=== PATIENT | female | born 1955 | race Caucasian/White ===

== ENCOUNTER 2016-12-05 22:04 | Emergency (ER) | payer OTHER ==
[2016-12-05 22:46] LABS: Hematocrit 36.1 % (37.0-47.0); Hemoglobin 11.9 gm/dL (12.5-16.0); Mean Cell Volume 84.1 fl (78-100); Mean Corpuscular Hemoglobin 27.7 pg (27-31); Mean Platelet Volume 9.7 fl (6.0-9.5); Neutrophil # 6.4 K/mm3 (1.3-6.0); Platelet Count 207 K/mm3 (150-450); Red Blood Count 4.29 M/mm3 (4.2-5.4); Red Cell Distribution Width 14.4 % (11.5-14.0); White Blood Count 11.6 K/mm3 (4.0-10.5)
[2016-12-05 22:59] LABS: Prothrombin Time (Patient) 11.5 Seconds (9.4-11.4)
[2016-12-05 23:00] LABS: INR 1.11 INR (0.90-1.10); Partial Thrombolplastin Time 26.9 Seconds (24-32)
[2016-12-05 23:07] LABS: Albumin * 2.8 gm/dl (3.4-5.0); Anion Gap 16.6 mmol/L (6.8-13.8); BUN/Creatinine Ratio 22.4 (9.0-21.6); Bilirubin, Total 0.3 mg/dL (0.0-1.1); Ca. Corrected For Albumin 9.5 mg/dL (8.4-10.2); Calcium * 8.9 mg/dL (7.9-10.9); Carbon Dioxide 24.3 mmol/L (24-32.6); Potassium 4.9 mmol/L (3.4-4.6); Total Protein 7.6 gm/dL (6.2-8.2)
[2016-12-05 23:08] LABS: Troponin I 0.404 ng/ml (0.00-0.10)
--- OUTSIDE RECORDS SUMMARY | 2016-12-05 23:22 | XMS REPORT | Continuity of Care Document ---
:1955 Author Organization [facility] ([facility]) [place] [address] Phone [phone] Care Team Providers Name Role Phone Desmond Montalvo Primary Care Provider [phone] Source Comments This disclosure is being made pursuant to the Care Everywhere program, applicable federal and state laws, and may not contain all informaitonavailable regarding this patient.[facility] ([facility]) Active Allergies and Adverse Reactions Allergen Noted Date Severity Reactions Comments Aspirin Nausea & Vomiting Bee Stings 02/13/2009 Anaphylaxis Glimepiride Unknown Iodinated Contrast 04/01/2013 Urticaria (Hives) Media - Oral And Iv Dye Iodine Urticaria (Hives) Latex, Natural Rubber OTHER pt just stated that he gets rashes around latex; itching at contact site; contact precautions but IV latex OK Non-Med Metal Urticaria (Hives) bumps, rash appears on skin in area of contact with metal any metal,except stainless steel Penicillins Seizure Pentobarbital OTHER cardiac arrest and seizures Sulfa (Sulfonamide 05/06/2016 Unknown Antibiotics) Thiopental Sodium 11/04/2014 Unknown On assisted records Trees 02/13/2009 Respiratory Distress,Rhinorrhea Current Medications Prescription Sig. Disp. Refills Start Date End Date Status amLODIPine 10 mg Take 10 mg by mouth Active tablet daily. gabapentin 600 mg Take 1,200 mg by mouth Active tablet 3 times daily. meloxicam 7.5 mg Take 7.5 mg by mouth Active tablet daily. simvastatin 40 mg Take 40 mg by mouth Active tablet every evening. carvedilol 25 mg Take 50 mg by mouth 2 Active tablet times daily with meals. baclofen 10 mg tablet Take 0.5 Tabs by mouth 30 Tab 0 11/10/2014 Active 3 times daily. Indications: MUSCLE SPASTICITY OF SPINAL ORIGIN furosemide 20 mg Take 20 mg by mouth Active tablet daily losartan 50 mg tablet Take 50 mg by mouth 2 Active times daily insulin lispro Inject 30 Units Active (HumaLOG) 100 unit/mL subcutaneously 3 times injection vial daily before meals. omeprazole 40 mg Take 40 mg by mouth at Active enteric coated bedtime. capsule insulin nph (HumuLIN Inject 76 units SQ at Active N) 100 unit/mL (3 mL) bedtime and 55 units injection pen SQ in the morning busPIRone 10 mg Take 10 mg by mouth 2 Active tablet times daily. miconazole 2 % powder Apply topically 2 30 g 11 05/11/2016 Active times daily. For scrotum Active Problems Patient Care Coordination Note GOALS OF CARE AND TREATMENT PREFERENCES Diagnosis: Altered mental status, OLENA, UTI Prognosis: Fair Goal(s) of Care: comfort and relief of symptoms, determine what is wrong and live longer Is the patient an inpatient? Yes. How did the team arrive at the current code status? Discussed with patient. Code status is: DNR Patient able to make own decisions?: Yes Patient's Goals of Care and communication style preference were communicated to attending staff. Problem Noted Date Pyelonephritis 05/06/2016 Infective myositis of right lower extremity 04/23/2016 Snoring 06/29/2015 ADRIANO (obstructive sleep apnea) 04/07/2015 Disorientation 01/11/2015 Superficial thrombophlebitis of left cephalic and basilic vein 11/10/2014 DM2 (diabetes mellitus, type 2) 11/03/2014 HTN (hypertension) 11/03/2014 GERD (gastroesophageal reflux disease) 11/03/2014 Abrasion of leg 09/15/2014 Neurogenic bladder 10/01/2012 S/P ventral herniorrhaphy 11/04/2010 VENTRAL HERNIA 06/17/2010 Paraplegia 03/24/2008 Other malaise and fatigue 03/19/2008 Abdominal pain, unspecified site 01/25/2008 Cervical spondylosis with myelopathy 10/20/2005 Degeneration of cervical intervertebral disc 10/10/2005 Resolved Problems Problem Noted Date Resolved Date Encephalopathy acute 11/10/2014 11/10/2014 Obtundation 11/03/2014 11/10/2014 Acute kidney injury 09/13/2014 11/10/2014 Hyperkalemia 09/13/2014 11/10/2014 Most Recent Encounters Date Type Specialty Providers Description 10/31/2016 Hospital Encounter Emergency Medicine Willy Acosta, Dx: Pain in joint, upper arm, left (Primary Dx) Immunizations Name Dates Previously Given Next Due Influenza, unspecified 06/08/2014,10/24/2005 Pneumococcal Polysaccharide, PPSV23 (Pneumovax 23) 09/15/2014 Social History Tobacco Use Types Packs/Day Years Used Date Former Smoker 4 20 Quit: 09/04/2005 Smokeless Tobacco: Never Used Comments:2004 Alcohol Use Drinks/Week oz/Week Comments No hx alcoholism prior to 1978 Last Filed Vital Signs Vital Sign Reading Time Taken Blood Pressure 163/72 10/31/2016 2:44 PM [employer]PER[employer] Pulse 75 10/31/2016 2:44 PM [employer]INE OPERATOR Temperature 36.1 C (97 F) 10/31/2016 11:05 AM [employer]INE OPERATOR Respiratory Rate 18 10/31/2016 2:44 PM [employer] M[employer]INE OPERATOR Height 1.753 m (5' 9.02") 05/08/2016 3:23 PM CDT Weight 113.399 kg (250 lb) 05/08/2016 3:23 PM CDT Body Mass Index 36.9 05/08/2016 3:23 PM CDT Oxygen Saturation 98% 10/31/2016 2:44 PM [employer] MACHINE OPERATOR Plan of Care Health Maintenance Due Date Last Done Comments Hepatitis B Vaccine (1 of 3 - 1955 Primary Series) Tdap Vaccine 1967 DIABETIC: Cholesterol 1974 Diabetic: Hdl 1974 Diabetic: Ldl 1974 DIABETIC: Microalbumin 1974 DIABETIC: Triglycerides 1974 MMR Vaccine 1974 Td Vaccine 1974 Prostate Cancer Screening 2006 DIABETIC: Foot Exam 11/03/2014 DIABETIC: Retinal Eye Exam 11/03/2014 Influenza Vaccine: Seasonal 04/04/2016 06/08/2014, (#1) 10/24/2005 Zoster Vaccine 2016 DIABETIC: Hemoglobin A1C 10/23/2016 04/22/2016, Additional history exists 11/04/2014, 08/19/2010 Colonoscopy 02/17/2019 02/17/2009 HCV Screening Completed 12/19/2008 Pneumococcal Vaccine Completed 09/15/2014 Results from Last 3 Months DIFFERENTIAL (10/31/2016 2:42 PM) Component Value Range % Neutrophils-Auto Diff 60.3 % Neutrophils-Auto Diff 6320 6572-2074 /MM3 % Lymphocytes-Auto Diff 27.6 % Lymphocytes-Auto Diff 2890 875-3300 /MM3 % Monocytes-Auto Diff 7.1 % Monocytes-Auto Diff 740 130-860 /MM3 % Eosinophils-Auto Diff 3.5 % Eosinophils-Auto Diff 370 40-390 /MM3 % Basophils 0.9 % Basophils-Auto Diff 90 10-136 /MM3 % Immature Granulocytes-Auto Diff 0.6 % Immature Granulocytes-Auto Diff 60 /MM3 Specimen Whole Blood CBC (COMPLETE BLOOD COUNT) (10/31/2016 2:42 PM) Component Value Range WBC Count 10.5 3.7-10.5 K/MM3 RBC Count 4.13(L) 4.50-6.20 M/MM3 Hemoglobin 11.8(L) 13.2-17.7 g/dL Hematocrit 34(L) 40-52 % MCV (Mean Corpuscular Volume) 82 82-99 FL MCH (Mean Corpuscular Hemoglobin) 29 25-35 PG MCHC (Mean Corpuscular Hemoglobin Concentration) 35 32-36 % Platelet Count 179 150-400 K/MM3 MPV (Mean Platelet Volume) 9.8 9.4-12.3 FL RBC Dist Width-STD 41.0 35.1-43.9 FL RBC Distrib Width 13.8 9.0-14.5 % Nucleated RBC 0 /100 WBC Specimen Whole Blood TROPONIN T (10/31/2016 2:42 PM) Component Value Range Troponin-T <0.03 <=0.10 ng/mL Specimen Blood CHEM 7 PANEL (10/31/2016 2:42 PM) Component Value Range Sodium 137 135-145 mEq/L Chloride 97 95-107 mEq/L Potassium 4.5 3.5-5.0 mEq/L CO2 23 22-29 mEq/L BUN 26(H) 10-20 mg/dL Creatinine 1.2Comment: 0.6-1.2 mg/dL Creatinine switched to enzymatic method on 01/11/2011.GFR equation switched to IDMS-traceable MDRD equation on 01/11/2011. Calculated GFR values are not valid in clinical settings where serum creatinine is changing. Glucose 409(H)Comment: 65-99 mg/dL The Expert Committee on the Diagnosis and Classification of Diabetes has defined impaired fasting glucose as greater than or equal to 100 mg/dL but less than 126 mg/dL.(Diabetes Care 28 (Suppl 1)S41,2005) Anion Gap 17 8-18 mEq/L Calculated GFR 62 >60 mL/min/1.73 m2 Specimen Blood CBC WITH DIFFERENTIAL (10/31/2016 2:42 PM) Specimen Whole Blood Narrative The following orders were created for panel order CBC WITH DIFFERENTIAL. Procedure Abnormality Status --------- ------ CBC (COMPLETE BLOOD COUNT)[[id number]] AbnormalFinal result DIFFERENTIAL[[id number]] Final result Please view results for these tests on the individual orders. ECG - EKG 12 LEAD (10/31/2016 11:12 AM) Component Value Range ECG SEVERITY - ABNORMAL ECG - VENT. RATE 69 bpm RR 870 ms P-R INTERVAL 204 ms QRSD INTERVAL 142 ms QT INTERVAL 420 ms QTC INTERVAL 450 ms P AXIS 18 degrees QRS AXIS -41 degrees T WAVE AXIS 21 degrees REPORT SINUS RHYTHM [Remains] IVCD, CONSIDER ATYPICAL LBBB NO SIGNIFICANT CHANGE Interpreting Physician: QUINTEN GUSMAN MD
--- NOTE | 2016-12-05 23:25 | ERNOTE ---
Dyspnea - General Presenting Symptoms: shortness of breath Time Seen by Provider: 12/05/16 23:02 Source: patient Exam Limitations: no limitations - Immun/Allergies/Home Medications Immunizations: IMMUNIZATION HX History of Influenza Vaccine Yes Hx Pneumococcal Vaccination Yes Allergies/Adverse Reactions: Allergies aspirin Allergy (Verified 12/05/16 22:43) bee venom protein (honey bee) Allergy (Verified 12/05/16 22:43) glimepiride [From Amaryl] Allergy (Verified 12/05/16 22:43) iodine Allergy (Verified 12/05/16 22:43) latex Allergy (Verified 12/05/16 22:43) Penicillins Allergy (Verified 12/05/16 22:43) pentobarbital Allergy (Verified 12/05/16 22:43) Sulfa (Sulfonamide Antibiotics) Allergy (Verified 12/05/16 22:43) tree and shrub pollen Allergy (Verified 12/05/16 22:43) - History of Present Illness Narrative: pt states that he has had multiple episodes of left arm pain with activity. He states the pain lasts approx 20 minutes and is only relieved by rest. No specific activity causes the pain Severity: moderate, severe Initiating event: Reports: unknown Frequency of episodes: Reports: occassional episodes Modifying Factors - (Improves): Reports: rest Modifying Factors (Worsens): Reports: activity Associated Symptoms-Dyspnea: Reports: weakness Prior Treatment: Reports: recently seen Review of Systems - Review of Systems Constitutional: Absent: recent illness, fever, chills EYE: Present: no symptoms reported ENT: Present: no symptoms reported Respiratory: Present: See HPI, shortness of breath, cough Cardiology: Present: See HPI, chest pain Gastrointestinal/Abdominal: Present: nausea. Absent: vomiting, abdominal pain Genitourinary: Present: no symptoms reported Musculoskeletal: Absent: back pain, neck pain Skin: Present: no symptoms reported Neurological: Present: no symptoms reported Endocrine: Present: no symptoms reported Hematologic/Lymphatic: Present: no symptoms reported Psych: Present: no symptoms reported - Patient's Past Medical History Patient History - Medical: Anemia, Diabetes Type 2 Patient History - Cardiac/Respiratory: Hyperlipidemia, Sleep Apnea Patient History - Surgical Procedures: Appendectomy, Pneumothorax - Social History Psych History: No pertinent hx Smoking Status: Former smoker Have you smoked in the past 12 months: No Alcohol Use: none Drug Use: none - Immunizations Hx Pneumococcal Vaccination: Yes History of Influenza Vaccine: Yes Physical Exam - Physical Exam General Appearance: Present: wd/wn, alert, no apparent distress Eye Exam: Normal inspection: bilateral Ears, Nose, Throat: Present: normal ENT inspection Neck: Present: normal inspection, nontender Respiratory: Present: no respiratory distress, normal breath sounds, no accessory muscle use, chest nontender, lungs clear Cardiovascular/Chest: Present: regular rate, rhythm, no murmur, normal peripheral pulses Peripheral Pulses: N=norm/S=strong/W=weak/B=bound/A=absent: Radial (R): Normal, Radial (L): Normal Gastrointestinal/Abdominal: Present: normal bowel sounds, nontender, nondistended, soft Back Exam: Present: normal inspection Extremity Exam: Present: normal inspection, no edema Neurological Exam: Present: alert, oriented, normal mood/affect Skin Exam: Present: normal color, warm/dry ED Progress - Results and Orders Patient's Lab Results:: I have reviewed the patient's lab results. Results and Orders: Laboratory Tests 12/05/16 12/05/16 12/05/16 22:40 22:40 22:40 WBC 11.6 H Hgb 11.9 L Hct 36.1 L Plt Count 207 PT 11.5 H INR (Anticoag Therapy) 1.11 H PTT (Meseret) 26.9 D-Dimer pCO2 29.1 L pO2 64.1 L HCO3 18.1 L Total CO2 19.0 Base Excess -5.3 L ABG pH 7.41 ABG O2 Sat (Measured) 93.1 L Sodium Potassium Chloride Carbon Dioxide Anion Gap BUN Creatinine Est GFR (Non-Af Amer) BUN/Creatinine Ratio Random Glucose Calcium Total Bilirubin AST ALT Alkaline Phosphatase Troponin I B-Natriuretic Peptide Total Protein Albumin 12/05/16 12/05/16 22:40 22:40 WBC Hgb Hct Plt Count PT INR (Anticoag Therapy) PTT (Woodson) D-Dimer 1.00 H pCO2 pO2 HCO3 Total CO2 Base Excess ABG pH ABG O2 Sat (Measured) Sodium 140 Potassium 4.9 H Chloride 104 Carbon Dioxide 24.3 Anion Gap 16.6 H BUN 36 H Creatinine 1.61 H Est GFR (Non-Af Amer) 35 L BUN/Creatinine Ratio 22.4 H Random Glucose 233 H Calcium 8.9 Total Bilirubin 0.3 AST 46 ALT 34 Alkaline Phosphatase 74 Troponin I 0.404 H* B-Natriuretic Peptide 707 H Total Protein 7.6 Albumin 2.8 L - Vital Signs Patient's Vital Signs:: I have reviewed the patient's vital signs. Vital Signs: Vital Signs 12/05/16 12/05/16 22:16 22:27 Pulse Rate 93 94 Respiratory 16 18 Rate Blood Pressure 166/81 143/71 O2 Sat by Pulse 81 L 91 Oximetry - EKG EKG: LBBB EKG read: Interp. by me EKG Comments: No comparison - X-Ray X-Ray #1 X-Ray: chest Interpretation: Interp. by me X-ray Comments: early pulmonary edema bilateral. No infiltrate or effusion - Progress/Reassessment Chief Complaint: Dyspnea Progress:: Improved Progress Note-Subjective: 12/05/16 23:38 discussed elevated Ti and as I was discussing that his d-dimer result came back positive. suggested getting a CTA. 12/05/16 23:55 Pt has allergy to iodine but he states he has had IV dye before and had no reaction. His renal function is on the cut off for our CT protocols, radiology suggested it would be safe as long as he is well hydrated. IV bolus started. While radiology was talking to the patient he stated that his "kidneys shut down for two days" due to a UTI in June. I canceled the CTA as I do not want to risk further damage to his kidneys when his respiratory status is stable on 2 L/ nc. Called [facility]. spoke with Layla at the call center. She will get an ER DrSergio to call me back. She does not know how long it will be as they have a very busy ER right now. 12/06/16 01:11 Received call back from [facility]. Spoke with Dr. Bone she agrees to accept the patient in transfer Departure Clinical Impression: Non-ST elevated myocardial infarction - Departure Disposition: [facility] Condition: Serious
[2016-12-05] MEDS ORDERED: NORMAL SALINE 1,000 ML IV ONE (23:42)
[2016-12-06] MEDS ORDERED: NITROGLYCERIN 0.4 MG/TAB BTL SL ONE ×3 (00:25→00:40)
[2016-12-06 02:32] VITALS: BP 137/67
== END 2016-12-06 01:50 | disposition short-term general hospital (02) ==
LOC: ER 22:04
DX: I21.4 Non-ST elevation (NSTEMI) myocardial infarction (principal); I44.7 Left bundle-branch block, unspecified; Z87.891 Personal history of nicotine dependence